=== PATIENT | female | born 1985 | race African-American/Black ===

== ENCOUNTER 2018-08-15 14:17 | Emergency (ER) | payer MEDICARE, MEDICAID ==
[~2018-08-15] VITALS: Ht 157.5 cm; Wt 90.9 kg
[2018-08-15 14:47] VITALS: Ht 157.5 cm; Wt 90.9 kg
[2018-08-15] MEDS ORDERED: BACLOFEN20 M1 PO (14:48)
[2018-08-15] MEDS ORDERED: HYDROCODON-ACE1 EA10 PO (14:49)
[2018-08-15] MEDS ORDERED: NEURONTIN 400400 MG PO (14:49)
[2018-08-15] MEDS ORDERED: CORTEF10 MG PO (14:49)
[2018-08-15] MEDS ORDERED: VESICARE5 MG PO (14:50)
[2018-08-15] MEDS ORDERED: MYRBETRIQ25 MG PO (14:51)
[2018-08-15 18:00] LABS: APPEARANCE CLEAR (CLEAR); BILIRUBIN NEGATIVE (NEGATIVE); COLOR YELLOW (YELLOW); GLUCOSE NEGATIVE (NEGATIVE); KETONE NEGATIVE (NEGATIVE); NITRITE NEGATIVE (NEGATIVE); PROTEIN NEGATIVE (NEGATIVE); UROBILINOGEN NORMAL (NORMAL)
[2018-08-15] MEDS ORDERED: ROBAXIN500 MG PO (19:25)
[2018-08-15 19:58] VITALS: BP 125/75
== END 2018-08-15 20:04 | disposition home or self-care (01) ==
LOC: D.ER 14:17
PROVIDERS: Emergency Medicine
DX: M54.32 Sciatica, left side (principal)

== ENCOUNTER 2020-02-20 08:27 | Emergency (ER) | payer MEDICARE, MEDICAID ==
[~2020-02-20] VITALS: Ht 157.5 cm; Wt 90.0 kg
[~2020-02-20 08:27] MED LIST: BACLOFEN20 M1 PO; CORTEF10 MG PO; HYDROCODON-ACE1 EA10 PO; MYRBETRIQ25 MG PO; NEURONTIN 400400 MG PO; ROBAXIN500 MG PO; VESICARE5 MG PO
[2020-02-20 08:35] VITALS: Ht 157.5 cm; Wt 90.0 kg
[2020-02-20] MEDS ORDERED: FLORINEF 0.1 M0.1 MG PO (08:41)
[2020-02-20] MEDS ORDERED: VALIUM5 MG PO (08:41)
[2020-02-20] MEDS ORDERED: ZANAFLEX4 MG PO (08:42)
[2020-02-20 09:18] LABS: BILIRUBIN NEGATIVE (NEGATIVE); KETONE NEGATIVE (NEGATIVE); NITRITE NEGATIVE (NEGATIVE); UROBILINOGEN NORMAL mg/dL (< 2)
[2020-02-20 09:18] LABS: BASOPHILS 0.2 % (0-2); EOSINOPHILS 0.8 % (0-7); HEMATOCRIT 50.3 % (36.0-48.0); HEMOGLOBIN 16.6 g/dL (12-16); IMMATURE GRANULOCYTES 0.3 % (0-5); LYMPHOCYTES 31.2 % (15-50); MEAN PLATELET VOLUME 8.6 fL (7.4-10.4); MONOCYTES 5.9 % (2-11); NEUTROPHILS 61.6 % (40-80); PLATELET COUNT 319 10x3/uL (130-400); RBC 5.53 10x6/uL (4.00-5.40); RDW 13.6 % (11.5-14.5); WBC 6.3 10x3/uL (4.8-10.8)
[2020-02-20 09:20] LABS: HCG URINE NEGATIVE (NEGATIVE)
[2020-02-20 09:30] LABS: CALC OSMOLALITY 265 mosm/kg (275-300); CALCIUM 8.7 mg/dL (8.5-10.1); CARBON DIOXIDE 25.8 mmol/L (21.0-32.0); CHLORIDE - SERUM 101 mmol/L (98-107); CREATININE - SERUM 0.8 mg/dL (0.6-1.3); GLUCOSE 84 mg/dL (74-106); POTASSIUM - SERUM 4.3 mmol/L (3.5-5.1); SODIUM 133 mmol/L (136-145); UREA NITROGEN 15 mg/dL (7-18); eGFR NON AFRICAN AMERICAN 88 mL/min (90-120)
[2020-02-20 09:38] LABS: ALBUMIN 3.3 g/dL (3.4-5.0); ALKALINE PHOSPHATASE 38 U/L (30-120); ALT (SGPT) 60 U/L (10-68); AMYLASE - SERUM 35 U/L (25-115); BILIRUBIN - TOTAL 0.54 mg/dL (0.2-1.3); LIPASE 95 U/L (73-393); PROTEIN - SERUM 6.7 g/dL (6.4-8.2)
[2020-02-20] MEDS ORDERED: NAPROSYN500 MG PO (12:06)
[2020-02-20 14:23] VITALS: BP 138/82
== END 2020-02-20 14:28 | disposition home or self-care (01) ==
LOC: D.ER 08:27
PROVIDERS: Family Medicine
DX: R07.81 Pleurodynia (principal); K80.20 Calculus of gallbladder without cholecystitis without obstruction; S24.104A Unspecified injury at T11-T12 level of thoracic spinal cord, initial encounter; X58.XXXA Exposure to other specified factors, initial encounter

== ENCOUNTER 2020-03-13 06:24 | Day surgery (SDC) | payer MEDICARE ==
[~2020-03-13] VITALS: Ht 157.5 cm; Wt 89.8 kg
--- NOTE | ~2020-03-13 | OP ---
PATIENT NAME: SYDNEE GUSTAFSON MEDICAL RECORD: [id number] :89 LOCATION:D.OPS ADMISSION DATE: SURGEON: ALEX MEJIA MD DATE OF OPERATION: 03/13/2020 PREOPERATIVE DIAGNOSES: 1. Gallstones. 2. Paraplegia. 3. Hypoadrenalism. POSTOPERATIVE DIAGNOSES: 1. Gallstones. 2. Paraplegia. 3. Hypoadrenalism. PROCEDURES: 1. Laparoscopic cholecystectomy. 2. Umbilical hernia repair. SURGEON: Alex Mejia MD REPORT OF PROCEDURE: The patient's abdomen was prepped and draped in sterile fashion. A semicircular incision was made on the inferior aspect of the umbilicus. Preoperatively, the patient had been noted to have a reducible hernia defect in the umbilicus. We dissected down around the tissues and elevated the umbilicus, revealing the hernia sac. This hernia sac was opened up and excised down to the fascial edges. I extended the fascial incision upwards a little bit in order to facilitate blunt exposure into the abdominal cavity. The 0 Vicryls were placed on the fascia bilaterally. We then inserted a 12 mm trocar. Under direct visualization, a 5 mm trocar was placed in the epigastrium and two more 5 mm trocars were placed in the right subcostal region. The gallbladder was grasped and elevated. It was noted to be distended with no signs of any acute inflammation. The cystic artery and cystic duct were dissected free and these were clipped proximally and distally and ligated in standard fashion. The gallbladder was then taken off the liver bed using electrocautery and placed into the right upper quadrant. Any bleeding from the liver bed was then treated with electrocautery. The ports and insufflation were then removed and the gallbladder was taken out through the umbilicus. The umbilical fascia was closed longitudinally with multiple interrupted 0 Prolenes. The umbilicus was tacked down to the fascia with a single interrupted 0 Vicryl and the subcutaneous tissues were reapproximated with interrupted 0 Vicryls. The wound was then infused with 10 mL of 0.25% Marcaine with epinephrine and the skin incisions were closed with subcutaneous 5-0 Monocryl. COMPLICATIONS: None. CONDITION: Stable. ANESTHESIA: General endotracheal and local. BLOOD LOSS: Minimal. NTS:[id number] Voice Confirmation ID: [id number] DOCUMENT ID: [id number] OPERATIVE REPORT [id number] SYDNEE GUSTAFSON CHRISTIAN MD CC: FRANCESCA MARI MD [id number] DICTATION DATE: 03/13/20 1022 [employer]: 03/13/20 1904 [facility] 03/13/20 [id number] [place] [address]
[~2020-03-13 06:24] MED LIST changes: +FLORINEF 0.1 M0.1 MG PO; +NAPROSYN500 MG PO; +VALIUM5 MG PO; +ZANAFLEX4 MG PO
[2020-03-13 07:08] LABS: CALC OSMOLALITY 271 mosm/kg (275-300); CALCIUM 8.9 mg/dL (8.5-10.1); CARBON DIOXIDE 25.3 mmol/L (21.0-32.0); CHLORIDE - SERUM 101 mmol/L (98-107); CREATININE - SERUM 0.7 mg/dL (0.6-1.3); GLUCOSE 90 mg/dL (74-106); POTASSIUM - SERUM 4.3 mmol/L (3.5-5.1); SODIUM 136 mmol/L (136-145); UREA NITROGEN 13 mg/dL (7-18); eGFR NON AFRICAN AMERICAN > 90 mL/min (90-120)
[2020-03-13 07:12] LABS: HCG SERUM NEGATIVE (NEGATIVE)
[2020-03-13 07:30] LABS: BASOPHILS 0.1 % (0-2); EOSINOPHILS 0.6 % (0-7); HEMATOCRIT 52.6 % (36.0-48.0); HEMOGLOBIN 17.4 g/dL (12-16); IMMATURE GRANULOCYTES 0.5 % (0-5); LYMPHOCYTES 20.5 % (15-50); MCH 29.9 pg (26.0-34.0); MCHC 33.1 g/dL (31.0-37.0); MCV 90.4 fL (80.0-100.0); MEAN PLATELET VOLUME 9.4 fL (7.4-10.4); MONOCYTES 7.5 % (2-11); NEUTROPHILS 70.8 % (40-80); PLATELET COUNT 351 10x3/uL (130-400); RBC 5.82 10x6/uL (4.00-5.40); RDW 13.9 % (11.5-14.5); WBC 7.9 10x3/uL (4.8-10.8)
[2020-03-13 07:43] VITALS: BP 138/97; Ht 157.5 cm; Wt 89.8 kg
[2020-03-13] MEDS ORDERED: IBUPROFEN600 MG PO (08:14)
[2020-03-13] MEDS ORDERED: HYDROCODON-ACE1 EA10 PO (10:17)
--- NOTE | 2020-03-13 15:30 | NUR ---
1228 RX'D WITH NORCO FOR C/O PAIN. PT HAS BEEN TOO DROWSY TO MEDICATE UNTIL NOW. 1250 RX'D WITH ZOFRAN FOR C/O NAUSEA 1320 PT STATES PAIN IS TOLERABLE AND NAUSEA HAS SUBSIDED. IV D/C'D WITH CANNULA INTACT, PRESSURE HELD, AND DRSG PLACED. DISCHARGE INSTRUCTIONS GIVEN AND PT VERBALIZED AN UNDERSTANDING, SHE TRANSFERRED HERSELF TO PERSONAL WHEELCHAIR WITHOUT ASSISTANCE. DISCHARGED HOME IN STABLE CONDITION AND WITHOUT C/O
[2020-03-17] MEDS ORDERED: BACLOFEN20 M1 PO (08:15)
== END 2020-03-13 13:30 | disposition home or self-care (01) ==
LOC: D.OPS 06:24
PROVIDERS: Anesthesiology; ATTEND Surgery
DX: K80.80 Other cholelithiasis without obstruction (principal); G82.20 Paraplegia, unspecified; E27.40 Unspecified adrenocortical insufficiency